=== PATIENT | female | born 1940 | race Caucasian/White ===

== ENCOUNTER 2016-08-11 16:52 | Outpatient (CLI) | payer MEDICARE ==
[2012-12-21 16:53] VITALS: BP 137/46
[2016-08-11 17:38] LABS: eGFR (African) > 60; eGFR (Non-African) > 60
[2016-08-12 12:36] LABS: APPEARANCE,URINE Cloudy (CLEAR); COLOR,URINE Yellow (YELLOW); OCCULT BLOOD,URINE 2+ (NEGATIVE); UROBILINOGEN URINE 0.2 Eu (0.2-1.0)
== END 2016-08-11 16:53 ==
LOC: LAB 16:52
PROVIDERS: ATTEND Nurse Practitioner
DX: R19.4 Change in bowel habit (principal); N64.4 Mastodynia; E87.1 Hypo-osmolality and hyponatremia; R30.0 Dysuria; I10 Essential (primary) hypertension; K86.1 Other chronic pancreatitis; K58.0 Irritable bowel syndrome with diarrhea
CPT/HCPCS: 36415; 80053; 81002; 87086

== ENCOUNTER 2016-09-13 11:02 | Outpatient (CLI) | payer MEDICARE ==
[2012-12-21 16:53] VITALS: BP 137/46
[2016-09-13 11:45] LABS: BASOPHILS % 0.8 (0.0-1.5); EOSINOPHILS % 1.6 % (0.0-6.8); MEAN CORPUSCULAR HEMOGLOBIN 32.4 pg (28.0-34.0); MEAN CORPUSCULAR VOLUME 92.2 fl (80.0-100.0); MONOCYTES % 5.2 % (0.0-11.0); NEUTROPHILS # 5.2 # k/uL (1.4-7.7)
[2016-09-13 12:14] LABS: eGFR (African) > 60; eGFR (Non-African) > 60
== END 2016-09-13 11:03 ==
LOC: LAB 11:02
PROVIDERS: ATTEND Nurse Practitioner
DX: R19.4 Change in bowel habit (principal); N64.4 Mastodynia; E87.1 Hypo-osmolality and hyponatremia; R30.0 Dysuria; I10 Essential (primary) hypertension; K86.1 Other chronic pancreatitis; K58.0 Irritable bowel syndrome with diarrhea; R60.9 Edema, unspecified; R07.89 Other chest pain
CPT/HCPCS: 36415; 80053; 80061; 82306; 84443; 85025

== ENCOUNTER 2017-01-03 15:30 | Outpatient (CLI) | payer MEDICARE ==
[2012-12-21 16:53] VITALS: BP 137/46
[2017-01-03 15:50] LABS: EOSINOPHILS % 4.3 % (0.0-6.8); MEAN CORPUSCULAR HEMOGLOBIN 32.8 pg (28.0-34.0); MEAN CORPUSCULAR VOLUME 89.8 fl (80.0-100.0); MONOCYTES % 7.2 % (0.0-11.0); NEUTROPHILS # 6.9 # k/uL (1.4-7.7)
[2017-01-03 16:13] LABS: eGFR (African) > 60; eGFR (Non-African) > 60
== END 2017-01-03 15:32 ==
LOC: LAB 15:30
PROVIDERS: ATTEND Nurse Practitioner
DX: E87.1 Hypo-osmolality and hyponatremia (principal); Z68.31 Body mass index [BMI] 31.0-31.9, adult; R19.4 Change in bowel habit; I10 Essential (primary) hypertension; K86.1 Other chronic pancreatitis; K58.0 Irritable bowel syndrome with diarrhea; R60.9 Edema, unspecified; M19.90 Unspecified osteoarthritis, unspecified site; K21.9 Gastro-esophageal reflux disease without esophagitis; E03.9 Hypothyroidism, unspecified; D69.2 Other nonthrombocytopenic purpura
CPT/HCPCS: 36415; 80053; 84443; 84550; 85025

== ENCOUNTER 2017-07-03 11:51 | Outpatient (CLI) | payer MEDICARE ==
[2012-12-21 16:53] VITALS: BP 137/46
[2017-07-03 12:14] LABS: BASOPHILS % 0.8 (0.0-1.5); EOSINOPHILS % 1.8 % (0.0-6.8); MEAN CORPUSCULAR HEMOGLOBIN 32.9 pg (28.0-34.0); MONOCYTES % 5.5 % (0.0-11.0); NEUTROPHILS # 6.8 # k/uL (1.4-7.7)
[2017-07-03 14:16] LABS: eGFR (African) > 60; eGFR (Non-African) > 60
== END 2017-07-03 11:52 ==
LOC: LAB 11:51
PROVIDERS: ATTEND Nurse Practitioner
DX: E87.1 Hypo-osmolality and hyponatremia (principal); R19.4 Change in bowel habit; I10 Essential (primary) hypertension; K86.1 Other chronic pancreatitis; K58.0 Irritable bowel syndrome with diarrhea; R60.9 Edema, unspecified; M19.90 Unspecified osteoarthritis, unspecified site; K21.9 Gastro-esophageal reflux disease without esophagitis; E03.9 Hypothyroidism, unspecified; D69.2 Other nonthrombocytopenic purpura
CPT/HCPCS: 36415; 80053; 84443; 84550; 85025